=== PATIENT | female | born 1935 | race Caucasian/White ===

== ENCOUNTER 2019-04-05 15:18 | Inpatient (IN) | payer OTHER ==
[2019-04-05 16:08] LABS: Arterial Blood Carboxyhemoglob 0.8 % (0-1.5); Blood Gas Oxyhemoglobin 96.8 % (94-97); Blood O2 Saturation 98.5 % (92-98.5)
[2019-04-05 16:11] LABS: Absolute Lymphocytes (CBC) 0.7 K/uL (0.7-4.9); Absolute Monocytes 1.2 K/uL (0.1-1.3); Absolute Neutrophil 10.9 K/uL (1.8-8.0); Basophils % 0.2 % (0-1.3); Hematocrit 47.3 % (36.0-45.0); Lymphocytes % 5.6 % (15.3-44.8); MPV 10.2 fL (7.6-11.3); Monocytes % 9.6 % (3.3-12.3); RBC Red Blood Cell Count 5.25 M/uL (3.86-4.86)
[2019-04-05 16:12] LABS: Protime INR 1.39
[2019-04-05] MEDS ORDERED: NA CHLORIDE 0.9% 1,000 ML ONE (16:34)
[2019-04-05] MEDS ORDERED: LEVALBUTEROL 1.25 MG/3 ML NEB ONE (16:34)
[2019-04-05] MEDS ORDERED: IPRATROPIUM BROM 0.5MG/2.5ML ONE (16:34)
[2019-04-05 16:43] LABS: Albumin 3.2 g/dL (3.4-5.0); Bilirubin Direct 0.4 mg/dL (0-0.2); Bilirubin Total 1.5 mg/dL (0.2-1.0); Magnesium 2.7 mg/dL (1.8-2.4); Potassium 4.5 mmol/L (3.5-5.1); Protein, Total 7.4 g/dL (6.4-8.2); Troponin (Emerg Dept Use Only) 0.24 ng/mL (0.0-0.045)
--- NOTE | 2019-04-05 16:50 | RAD REPORT ---
EXAM DESCRIPTION: RAD - Chest Single View - 04/05/2019 4:16 pm CLINICAL HISTORY: Cough, congestion, shortness of breath COMPARISON: April 12, 2013 TECHNIQUE: AP portable chest image was obtained 1611 hours . FINDINGS: There is near complete opacification of the left hemithorax new from the prior study. Ther e is some minimal aeration in the upper left lung field. This is most likely a large left pleural eff usion. Patient likely has complete left lower lobe atelectasis and partial left upper lobe atelectasi s. Interstitial markings are prominent in the right lung field. No dense consolidation. Trachea remai ns midline. Heart size is difficult to assess, obscured by the left hemithorax findings. No pneumotho rax. No large right pleural effusion. No acute bony abnormality seen. No acute aortic findings suspec mian. IMPRESSION: Near complete left hemithorax opacification likely from large left pleural effusion.
--- NOTE | 2019-04-05 17:11 | RAD REPORT ---
EXAM DESCRIPTION: CT - Head Brain Wo Cont - 04/05/2019 4:58 pm CLINICAL HISTORY: Transient alteration of awareness COMPARISON: CT study October 2015 TECHNIQUE: Axial 5 mm thick images of the head were obtained without IV contrast. All CT scans are performed using dose optimization technique as appropriate and may include automated exposure control or mA/KV adjustment according to patient size. FINDINGS: No intracranial hemorrhage, mass, edema or shift of mid-line structures. No acute infarcti on changes seen. No cortical edema or sulcal effacement. Patient has advanced atrophy and chronic isc hemic change minimally progressive from 2015. Arterial and physiologic calcifications are present. Ve ntricles are normal. Mastoid air cells and visualized portions of the paranasal sinuses are clear. Right nasal passage po lyp or prominent mucosa unchanged from 2015. Degenerative bony changes are present. There is a new 2 centimeter area of lucency in the left pariet al bone that extends from outer table to inner table. As a new finding, myeloma or a bony metastatic lesion cannot be excluded. IMPRESSION: No acute infarction changes are present. No hemorrhage, mass or acute brain parenchymal finding. Advanced atrophy and chronic ischemic changes are present progressive from 2015. New lucent or lytic area in the left parietal bone could be metastatic disease or myeloma. No other f ocal bone lesions seen. As clinical findings warrant given the patient's baseline medical status, bone scan imaging could be performed to assess for activity in this region and to evaluate for any other bone lesions. ,
--- NOTE | 2019-04-05 17:15 | RAD REPORT ---
EXAM DESCRIPTION: CT - Thorax Wo Con - 04/05/2019 4:58 pm CLINICAL HISTORY: Shortness of breath, chest pain COMPARISON: Chest films same date TECHNIQUE: Axial 5 mm thick images of the chest were obtained without IV contrast. All CT scans are performed using dose optimization technique as appropriate and may include automated exposure control or mA/KV adjustment according to patient size. FINDINGS: There is a large left pleural effusion present. There is complete left lower lobe atelecta sis. There is partial atelectasis of the left upper lobe with only a small amount of aerated parenchy ma in the left apex. There is left lower lobe bronchus complete opacification and partial opacificati on of the left upper lobe bronchus. No large perihilar mass lesions seen. Moderate right pleural effusion is present with partial right lower lobe atelectasis. No right-side e ndobronchial lesion identified. There is no infiltrate or mass of the right-sided lung parenchyma. No pneumothorax. No pleural based mass. No abnormal mediastinal or hilar masses or lymphadenopathy seen. No gross aortic or pulmonary artery finding suspected. Assessment is limited in the absence of IV contrast. Dense bowel than coronary ar leonel calcifications are present. Cardiomegaly is present without pericardial effusion. No chest wall mass or abnormal axillary lymphadenopathy. Patient has fluid retention in the subcutane ous fatty tissues of the chest, upper abdomen and left upper extremity. Osteopenic changes are evident. There are multiple areas of diminished attenuation within the thoraci c vertebrae. The lytic or lucent focus in the posterior left ninth rib is present. IMPRESSION: Large left pleural effusion with complete left lower lobe atelectasis and partial atelec tasis of the left upper lobe. There is mucous plugging or other obstructive process in the left lower lobe and left upper lobe bronchi. Moderate right pleural effusion with partial atelectasis of the right lower lobe. Cardiomegaly with fluid retention throughout the chest, upper abdomen and left upper extremity subcut aneous tissues. Multiple lytic vertebral lesions and at least 1 rib lesion. This finding along with the lucent focus in the skull suggest myeloma or bony metastatic disease.
[2019-04-05] MEDS ORDERED: PIPER/TAZO/NS 3.375gm 3.375 GM/100 ML BAG ONE (17:38)
--- NOTE | 2019-04-05 18:05 | EDPHYS ---
Physician Documentation [facility] Name: Catrachita Husain Age: 83 yrs Sex: Female : 1935 Arrival Date: 04/05/2019 Time: 15:26 Bed 2 Private MD: ED Physician Vikash Aceves HPI: 04/05 15:50 This 83 yrs old Female presents to ER via EMS with complaints of ams and yumiko dyspnea. 15:50 This 83 yrs old Female presents to ER via EMS with complaints of ams and yumiko dyspnea. 15:50 The patient has shortness of breath at rest. Onset: The symptoms/episode began/occurred yumiko 1 day(s) ago. Duration: The symptoms are continuous, and are steadily getting worse. The patient's shortness of breath is aggravated by nothing, is alleviated by elevating head, application of supplemental oxygen. The patient presents with confusion, decreased mental status, trouble concentrating. Possible causes: sepsis, unknown. Associated signs and symptoms: The patient has no apparent associated signs or symptoms. Historical: - Allergies: 15:37 No Known Allergies; ph - Home Meds: 17:24 Unable to obtain [Active]; sg - PMHx: 17:24 Cancer, Breast; sg - PSHx: 15:37 Cholecystectomy; ph 17:24 Mastectomy; sg - Immunization history:: Adult Immunizations not up to date. - Family history:: not pertinent. - Social history:: Smoking status: unknown. - Ebola Screening: : Patient negative for fever greater than or equal to 101.5 degrees Fahrenheit, and additional compatible Ebola Virus Disease symptoms Patient denies exposure to infectious person Patient denies travel to an Ebola-affected area in the 21 days before illness onset No symptoms or risks identified at this time. ROS: 15:50 Eyes: Negative for injury, pain, redness, and discharge, ENT: Negative for injury, yumiko pain, and discharge, Abdomen/GI: Negative for abdominal pain, nausea, vomiting, diarrhea, and constipation, Back: Negative for injury and pain, : Negative for injury, bleeding, discharge, and swelling, Skin: Negative for injury, rash, and discoloration, Psych: Negative for depression, anxiety, suicide ideation, homicidal ideation, and hallucinations, Allergy/Immunology: Negative for hives, rash, and allergies, Endocrine: Negative for neck swelling, polydipsia, polyuria, polyphagia, and marked weight changes. 15:50 Neck: Positive for stiffness, chronic, down and to left. 15:50 Cardiovascular: Positive for palpitations. 15:50 Respiratory: Positive for cough, shortness of breath, at rest. 15:50 Unable to obtain ROS due to altered mental status. Exam: 15:50 Eyes: Pupils equal round and reactive to light, extra-ocular motions intact. Lids and yumiko lashes normal. Conjunctiva and sclera are non-icteric and not injected. Cornea within normal limits. Periorbital areas with no swelling, redness, or edema. Chest/axilla: Normal chest wall appearance and motion. Nontender with no deformity. No lesions are appreciated. 15:50 Head/face: Noted is rash, of the chin, right mandible and left mandible. 15:50 Neck: External neck: rotated, kyphosis, to left. 15:50 Cardiovascular: Rate: tachycardic, Rhythm: regular, Pulses: Pulses are 4+ in bilateral radial, brachial, femoral, popliteal, posterior tibial and and dorsalis pedis arteries.. Edema: is not appreciated, JVD: is not appreciated, left arm lymphedema. Vital Signs: 15:34 BP 184 / 85; Pulse 111; Resp 28; Pulse Ox 82% on R/A; Weight 43.09 kg; ph 15:35 Pulse 108; Resp 29 S; Pulse Ox 97% on 100% Non-rebreather mask; sg 15:56 BP 167 / 74; Pulse 110; Resp 28; Temp 97.4; Pulse Ox 99% on Non-rebreather mask; ph 17:22 BP 155 / 70; Pulse 100 MON; Resp 28; Pulse Ox 100% on 100% Nebulizer Mask; sg 18:20 BP 154 / 70; Pulse 100; Resp 22; Pulse Ox 97% on 35% BiPAP; sg 19:00 BP 142 / 77; Pulse 98; Resp 21 S; Pulse Ox 97% on 35% BiPAP; sg 19:42 BP 144 / 58; Pulse 97; Resp 22; Temp 97.2; Pulse Ox 97% on BiPAP; Pain 0/10; aa1 Procedures: 17:50 Peripheral line: by aseptic technique a peripheral line was placed in the right [facility] external jugular vein. [facility]: 15:27 Patient medically screened. [facility] 15:57 Data reviewed: vital signs, nurses notes, lab test result(s), EKG, radiologic studies, [facility] CT scan, plain films. 04/05 15:48 Order name: Basic Metabolic Panel [facility] 04/05 15:48 Order name: CBC with Diff [facility] 04/05 15:48 Order name: LFT's [facility] 04/05 15:48 Order name: Magnesium [facility] 04/05 15:48 Order name: NT PRO-BNP [facility] 04/05 15:48 Order name: PT-INR [facility] 04/05 15:48 Order name: Troponin (emerg Dept Use Only) [facility] 04/05 15:48 Order name: Lipase [facility] 04/05 15:48 Order name: Blood Culture Adult (2) [facility] 04/05 15:48 Order name: Procalcitonin; Complete Time: 16:42 [facility] 04/05 15:48 Order name: Lactate; Complete Time: 17:23 [facility] 04/05 15:48 Order name: Urine Culture [facility] 04/05 15:48 Order name: ABG; Complete Time: 16:42 [facility] 04/05 15:48 Order name: Basic Metabolic Panel; Complete Time: 17:23 [facility] 04/05 15:48 Order name: XRAY Chest (1 view); Complete Time: 17:23 [facility] 04/05 15:48 Order name: CT Head Brain wo Cont; Complete Time: 17:23 [facility] 04/05 15:48 Order name: Glucose, Ancillary Testing [facility] 04/05 15:48 Order name: CBC with Automated Diff; Complete Time: 16:25 [facility] 04/05 15:48 Order name: Liver (Hepatic) Function; Complete Time: 17:23 [facility] 04/05 15:49 Order name: Magnesium; Complete Time: 17:23 [facility] 04/05 15:49 Order name: NT PRO-BNP; Complete Time: 17:23 [facility] 04/05 15:49 Order name: Protime (+INR); Complete Time: 16:25 [facility] 04/05 15:49 Order name: Troponin (Emerg Dept Use Only); Complete Time: 17:23 [facility] 04/05 15:49 Order name: Lipase; Complete Time: 17:23 [facility] 04/05 16:25 Order name: CT Chest Wo Con; Complete Time: 17:23 [facility] 04/05 17:52 Order name: BIPAP: low pressures [facility] 04/05 18:05 Order name: Urine Dipstick--Ancillary (enter results) em1 04/05 15:48 Order name: EKG; Complete Time: 15:49 [facility] 04/05 15:48 Order name: Cardiac monitoring; Complete Time: 17:00 [facility] 04/05 15:48 Order name: EKG - Nurse/Tech; Complete Time: 17:00 [facility] 04/05 15:48 Order name: IV Saline Lock; Complete Time: 17:00 [facility] 04/05 15:48 Order name: Labs collected and sent; Complete Time: 17:00 [facility] 04/05 15:48 Order name: O2 Per Protocol; Complete Time: 17:00 [facility] 04/05 15:48 Order name: O2 Sat Monitoring; Complete Time: 17:01 [facility] 04/05 15:48 Order name: Flynn; Complete Time: 17:22 [facility] 04/05 15:48 Order name: Urine Dipstick-Ancillary (obtain specimen); Complete Time: 18:01 [facility] Administered Medications: 16:55 Drug: Xopenex 3.75 mg Route: Inhalation; sg 16:55 Drug: AtroVENT Aerosol 0.5 mg Route: Inhalation; sg 16:55 Drug: NS 0.9% 1000 ml Route: IV; Rate: 100 ml/hr; Site: right antecubital; sg 20:00 Follow up: IV Status: Infusion continued upon admission aa1 17:59 Drug: Zosyn 3.375 grams Route: IVPB; Infused Over: 60 mins; Site: right jugular; sg 19:00 Follow up: IV Status: Completed infusion; IV Intake: 100ml aa 18:32 Drug: LevaQUIN 500 mg Volume: 100 ml; Route: IVPB; Infused Over: 60 mins; Site: right sg antecubital; 19:32 Follow up: IV Status: Completed infusion; IV Intake: 100ml aa1 Disposition: 04/05/19 18:04 Hospitalization ordered by Arnav Cordova for Inpatient Admission. Preliminary diagnosis are Altered mental status, unspecified, Hypoxemia, Pleural effusion in conditions classified elsewhere - bilateral, Unspecified kidney failure, Weakness. - Bed requested for Telemetry/MedSurg (Inpatient). - Status is Inpatient Admission. aa1 - Condition is Serious. - Problem is new. - Symptoms have improved. UTI on Admission? No Signatures: Dispatcher [employer] EDАлександр Edwards RN RN Genoveva Nelson RN RN aa1 Vikash Aceves MD MD cha Hall, Patricia, RN RN Roberta Vergara RN RN df Corrections: (The following items were deleted from the chart) 18:31 18:04 Hospitalization Ordered by Arnav Cordova DO for Inpatient Admission. Preliminary df diagnosis is Altered mental status, unspecified; Hypoxemia; Pleural effusion in conditions classified elsewhere - bilateral; Unspecified kidney failure; Weakness. Bed requested for Telemetry/MedSurg (Inpatient). Status is Inpatient Admission. Condition is Serious. Problem is new. Symptoms have improved. UTI on Admission? No. yumiko 20:05 18:31 04/05/2019 18:04 Hospitalization Ordered by ArnavWillie SARABIA for Inpatient aa1 Admission. Preliminary diagnosis is Altered mental status, unspecified; Hypoxemia; Pleural effusion in conditions classified elsewhere - bilateral; Unspecified kidney failure; Weakness. Bed requested for Telemetry/MedSurg (Inpatient). Status is Inpatient Admission. Condition is Serious. Problem is new. Symptoms have improved. UTI on Admission? No. df 20:33 20:05 04/05/2019 18:04 Hospitalization Ordered by Arnav Cordova DO for Inpatient aa1 Admission. Preliminary diagnosis is Altered mental status, unspecified; Hypoxemia; Pleural effusion in conditions classified elsewhere - bilateral; Unspecified kidney failure; Weakness. Bed requested for Telemetry/MedSurg (Inpatient). Status is Inpatient Admission. Condition is Serious. Problem is new. Symptoms have improved. UTI on Admission? No. aa1
--- NOTE | 2019-04-05 18:05 | ER ---
Nurse's Notes [facility] Name: Catrachita Husain Age: 83 yrs Sex: Female : 1935 Arrival Date: 04/05/2019 Time: 15:26 Bed 2 Private MD: Diagnosis: Altered mental status, unspecified;Hypoxemia;Pleural effusion in conditions classified elsewhere-bilateral;Unspecified kidney failure;Weakness Presentation: 04/05 15:30 Presenting complaint: EMS states: Family called for difficulty breathing, reports that ph yesterday afternoon pt became altered and quit talking, also started having trouble breathing, son states that pt is usually A\T\O x 3, Spo2 78% RA, BP elevated 200s/110s, HR 113, BGL 122. Transition of care: patient was not received from another setting of care. Onset of symptoms was April 05, 2019. Risk Assessment: Do you want to hurt yourself or someone else? Patient reports no desire to harm self or others. Initial Sepsis Screen: Does the patient meet any 2 criteria? RR > 20 per min. Altered Mental Status. HR > 90 bpm. Yes Does the patient have a suspected source of infection? No. Patient's initial sepsis screen is negative. Care prior to arrival: None. 15:30 Method Of Arrival: EMS: [facility] ph 15:30 Acuity: JOSSELYN 1 ph Historical: - Allergies: 15:37 No Known Allergies; ph - Home Meds: 17:24 Unable to obtain [Active]; sg - PMHx: 17:24 Cancer, Breast; sg - PSHx: 15:37 Cholecystectomy; ph 17:24 Mastectomy; sg - Immunization history:: Adult Immunizations not up to date. - Family history:: not pertinent. - Social history:: Smoking status: unknown. - Ebola Screening: : Patient negative for fever greater than or equal to 101.5 degrees Fahrenheit, and additional compatible Ebola Virus Disease symptoms Patient denies exposure to infectious person Patient denies travel to an Ebola-affected area in the 21 days before illness onset No symptoms or risks identified at this time. Screenin:39 Abuse screen: Denies threats or abuse. Denies injuries from another. Nutritional sg screening: No deficits noted. Tuberculosis screening: No symptoms or risk factors identified. Never had TB. Fall Risk None identified. Assessment: 15:39 Reassessment: pt son at bedside at this time. sg 15:42 Pain: Unable to use pain scale. Neuro: Level of Consciousness is awake, does not follow sg commands, will not answer questions, pt son reports that she is normally able to complete her adls and can speak, noticed last night that she was not breathing normally and not able to follow commands. Cardiovascular: Heart tones S1 S2 present Patient's skin is warm and dry. Rhythm is. Respiratory: Respiratory effort is even, labored, with retractions, shallow, Respiratory pattern is tachypnea Breath sounds with crackles Breath sounds are diminished in right posterior upper lobe, left posterior lower lobe, right posterior middle lobe and right posterior lower lobe. GI: Abdomen is flat, non-distended. EENT: Oral mucosa is dry. Derm: Skin is fragile, is thin, Skin is dry, Skin is pale, Skin temperature is warm. Derm: skin break down noted on pt chest where her chin lays upon her chest due to kyphotic posture, a reddened area that is blanchable noted to her neck and left shoulder, a reddened blanchable area noted on her right scapula and buttocks, pt repositioned to left side lying. Musculoskeletal: Swelling present in left arm. 16:15 Reassessment: Patient appears in no apparent distress at this time. RUCHI Kelly sg at bedside at this time for ABG and for Suctioning of the upper airways, Inserted nasal trumpet to Right nare by AUDIO VISUAL DIRECTOR, snoring respirations decreased, pt appears relaxed at this time. 17:21 Reassessment: Patient appears in no apparent distress at this time. Patient states sg symptoms have not improved. General: Appears in no apparent distress. Neuro: Level of Consciousness is awake, does not follow commands, will not answer questions, pt eyes awake with resp even and labored, tachypneic at this time, Nasal trumpet remains intact in the right nare. 17:37 Reassessment: Patient appears in no apparent distress at this time. at sg bedside at bedside updating pt son on POC and need for admission, discussing treatment options at this time. 18:18 Reassessment: Patient appears in no apparent distress at this time. Yamile AUDIO VISUAL DIRECTOR sg at bedside for application of BiPap, pt tolerating well at this time. Respiratory: Respiratory effort is even, Respiratory pattern is tachypnea. Derm: Skin is pink, warm \T\ dry. Skin temperature is warm. 18:47 Reassessment: Rd castaneda son can be reached at [phone]. sg 18:50 Reassessment: attempt to call report, floor nurse unavailable at this time. sg 19:15 Reassessment: Patient appears in no apparent distress at this time. No changes from aa1 previously documented assessment. Patient and/or family updated on plan of care and expected duration. Pain level reassessed. Patient is alert, oriented x 3, equal unlabored respirations, skin warm/dry/pink. Patient is alert/active/playful, equal unlabored respirations, skin warm/dry/pink. Patient states symptoms have improved. Critical care time stopped, patient has stabilized. Pt resting quietly, eyes closed. Awaiting admission to room 201. 20:02 Reassessment: Patient appears in no apparent distress at this time. No changes from aa1 previously documented assessment. Report given to Mindy Fu LVN. Vital Signs: 15:34 BP 184 / 85; Pulse 111; Resp 28; Pulse Ox 82% on R/A; Weight 43.09 kg; ph 15:35 Pulse 108; Resp 29 S; Pulse Ox 97% on 100% Non-rebreather mask; sg 15:56 BP 167 / 74; Pulse 110; Resp 28; Temp 97.4; Pulse Ox 99% on Non-rebreather mask; ph 17:22 BP 155 / 70; Pulse 100 MON; Resp 28; Pulse Ox 100% on 100% Nebulizer Mask; sg 18:20 BP 154 / 70; Pulse 100; Resp 22; Pulse Ox 97% on 35% BiPAP; sg 19:00 BP 142 / 77; Pulse 98; Resp 21 S; Pulse Ox 97% on 35% BiPAP; sg 19:42 BP 144 / 58; Pulse 97; Resp 22; Temp 97.2; Pulse Ox 97% on BiPAP; Pain 0/10; aa1 ED Course: 15:26 Patient arrived in ED. em1 15:27 Vikash Aceves MD is Attending Physician. yumiko 15:34 Triage completed. ph 15:37 Arm band placed on. ph 15:38 Initial lab(s) drawn, by me, sent to lab. Inserted saline lock: 22 gauge in right sg forearm, using aseptic technique. Blood collected. 15:40 Patient has correct armband on for positive identification. Bed in low position. Call sg light in reach. Side rails up X2. nuclear monitoring technician on. Pulse ox on. NIBP on. Warm blanket given. Head of bed elevated. 16:16 XRAY Chest (1 view) In Process Unspecified. EDMS 16:58 CT Head Brain wo Cont In Process Unspecified. EDMS 16:59 CT Chest Wo Con In Process Unspecified. EDMS 17:20 Aditi Espinoza, RN is Primary Nurse. 17:21 Primary Nurse role handed off by Aditi Espinoza, RN 17:21 Александр Lyn, ANGELITO is Primary Nurse. 17:21 Flynn cath inserted, using sterile technique, 12 Fr., by al, balloon inflated, clamped. ae3 urine specimen collected. other Scanty amount of moose urine in Flynn tubing, insufficient amount of urine for specimen collection at this time. 17:39 First set of blood cultures drawn by al, by venipuncture 23G to right hand. dh3 17:50 IV insertion, 18 G R Jugular by , 1 attempt, pt tolerated well, blood sg culture obtained, IV abx to infuse. 17:54 Second set of blood cultures drawn by physician. dh3 18:01 Arnav Cordova DO is Hospitalizing Provider. [facility] 18:03 Urine collected: Flynn catheter specimen, clear, Amount Returned: 20mL. dh3 18:49 Patient admitted, IV remains in place. intact, No redness/swelling at site. sg Administered Medications: 16:55 Drug: Xopenex 3.75 mg Route: Inhalation; 16:55 Drug: AtroVENT Aerosol 0.5 mg Route: Inhalation; sg 16:55 Drug: NS 0.9% 1000 ml Route: IV; Rate: 100 ml/hr; Site: right antecubital; sg 20:00 Follow up: IV Status: Infusion continued upon admission aa1 17:59 Drug: Zosyn 3.375 grams Route: IVPB; Infused Over: 60 mins; Site: right jugular; sg 19:00 Follow up: IV Status: Completed infusion; IV Intake: 100ml aa1 18:32 Drug: LevaQUIN 500 mg Volume: 100 ml; Route: IVPB; Infused Over: 60 mins; Site: right sg antecubital; 19:32 Follow up: IV Status: Completed infusion; IV Intake: 100ml aa1 Intake: 19:00 IV: 100ml; Total: 100ml. aa1 19:32 IV: 100ml; Total: 200ml. aa1 Outcome: 18:04 Decision to Hospitalize by Provider. yumiko 20:33 Admitted to Med/surg accompanied by tech, via stretcher, room 201, with oxygen, with aa1 chart, Report called to Mindy Fu LVN 20:33 Patient left the ED. aa1 Signatures: Dispatcher [employer] EDАлександр Edwards, RN RN sg Genoveva Nelson RN RN aa1 Vikash Aceves MD MD cha Martinez, Ephraim em1 Aditi Espinoza RN RN Breann Narayan RN RN Dennis, Jeana 3 Suzie Fields ae3 Corrections: (The following items were deleted from the chart) 17:39 17:38 NS 0.9% 1000 ml IV at 100 ml/hr in right antecubital [facility]
--- NOTE | 2019-04-05 18:38 | P.HP ---
Certification for Inpatient Patient admitted to: Inpatient With expected LOS: >2 Midnights Patient will require the following post-hospital care: Hospice Practitioner: I am a practitioner with admitting privileges, knowledge of patient current condition, hospital course, and medical plan of care. Services: Services provided to patient in accordance with Admission requirements found in Title 42 Section 412.3 of the Code of Federal Regulations Patient History Date of Service: 04/05/19 Primary Care Provider: None Reason for admission: Shortness of breath History of Present Illness: 83-year-old female brought in by son due to increasing shortness of breath and poor oral intake. Most of the information came from the son in the ER physician. Patient with history of stage IV breast cancer, hypertension, hyperlipidemia, atrial fibrillation, history CVA and poor follow up. Son reports that the patient has not followed up with any PCP or specialist in quite some time. The son reports that the patient refuses to go to any physician. Last hospitalization in 2012 was noted. Son further reports of the patient has history of breast cancer stage IV. She got chemotherapy many years ago. He further reports that in health for quite some time. She has been getting more short of breath. Yesterday she became more short of breath and quit eating. Today she refused to eat and the shortness of breath worsened. He brought the patient for further evaluation. Patient in see beer distress. Patient was immediately placed on BiPAP. Initial lab shows sodium 140, potassium 4.5, BUN of 80, creatinine 1.41 with a GFR 36. Glucose 120. White count 12. Hemoglobin 15. Lactic acid within normal range. Troponin 0.24 BMP elevated. Chest x-rayed showed bilateral pleural effusions. CT head showed no acute changes but chronic ischemic changes were noted along with left parietal bone lesion likely metastatic in nature. CT scan revealed large left pleural effusion with complete lower lobe atelectasis and partial atelectasis of the left upper lobe. There was mucus plugging with the possibility of obstructive process in the left lower lobe and left upper bronchi. Moderate right pleural effusion with partial atelectasis of the right lobe was also noted. Cardiomegaly with fluid retention throughout the chest, upper abdomen and left upper extremity of the subcutaneous tissues were noted. Multiple lytic vertebrae lesions likely metastatic. Patient was stabilized in the emergency room. Patient was admitted for further evaluation. When I saw the patient ER, she appeared cachectic, disheveled and ill appearing. Allergies No Known Allergies Allergy (Verified 04/08/13 08:12) Home medications list reviewed: No Home Medications: Amlodipine [Norvasc*] 5 mg PO DAILY #30 tab 04/14/13 Ciprofloxacin HCl [Cipro*] 500 mg PO BID #14 tab 04/14/13 Hydrocodone 5/APAP 325 [[place] 5/325] 1 tab PO Q6H PRN #20 tab 04/14/13 - Past Medical/Surgical History -: Hypertension -: Hyperlipidemia -: History CVA -: History of atrial fibrillation -: Stage IV breast cancer -: GERD -: Poor follow up and compliance -: Breast mastectomy Psychosocial/ Personal History: Patient lives with son - Family History Family History: Reviewed- Non-Contributory - Social History Smoking Status: Unknown if ever smoked Alcohol use: Yes CD- Drugs: No Caffeine use: No Place of Residence: Home Review of Systems is unable to be obtained Physical Examination - Physical Exam General: Cachectic, Disheveled, Other (Patient currently on BiPAP. Patient with poor response to palpation. Muscle wasting throughout the body noted. Patient is severely malnourished ) HEENT: Atraumatic, Other (Dry mucous membranes) Neck: Other (Neck is relaxed) Respiratory: Crackles/rales, Other (Poor air movement bilateral.) Cardiovascular: Abnormal pulses (Suspect sinus tachycardia verses atrial fibrillation) Gastrointestinal: Normal bowel sounds, Other (Patient is severely malnourished.) Musculoskeletal: Other (Muscle wasting throughout) Neurological: Other (Patient with poor response to pain) - Studies Laboratory Data (last 24 hrs) 04/05/19 15:40: PT 16.2 H, INR 1.39 04/05/19 15:40: WBC 12.8 H, Hgb 15.2 H, Hct 47.3 H, Plt Count 345 04/05/19 15:40: Sodium 148 H, Potassium 4.5, BUN 80 H, Creatinine 1.41 H, Glucose 120 H, Magnesium 2.7 H, Total Bilirubin 1.5 H, AST 39 H, ALT 37, Alkaline Phosphatase 129 H, Lipase 70 L Assessment and Plan - Plan Impression: Acute respiratory failure secondary to large left pleural effusion with complete lower lobe atelectasis; partial atelectasis of the upper lobe with noted mucous plugging with the possibility of obstructive process; moderate right pleural effusion with partial atelectasis of the right lobe; cardiomegaly likely with underlying acute on chronic end-stage diastolic CHF and fluid retention throughout the chest, upper abdomen and left upper extremity of the subcutaneous tissues likely metastatic in nature 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 Patient with multiple medical issues with very poor outcome. Patient at risk for complications if patient required thoracentesis or intubation. Case discussed at length with the son who understands the patient's current condition. Son understands that her condition has declined over time. He mentions that the patient would not want any aggressive treatment. Advanced directives addressed in detail. Son wishes for the patient to be do not resuscitate and [id number]. Son desires comfort measures only. Son agrees with current plan of care and to discuss further about set up for hospice. Patient will likely require inpatient hospice. Will consult social services assistant in the morning to arrange. No need for aggressive workup at this time. Son agrees with plan of care. Will provide BiPAP, IV antibiotic therapy at this time. Will keep the patient as comfortable as possible. Will discuss with social services assistant along with son again tomorrow. Discharge Plan: Other (Inpatient hospice) Plan to discharge in: 24 Hours - Advance Directives Does patient have a Living Will: No Does patient have a Durable POA for Healthcare: No - Code Status/Comfort Care Code Status Assessed: Yes (Patient is DNR/DNI) Time Spent Managing Pts Care (In Minutes): 55
[2019-04-05] MEDS ORDERED: Levofloxacin500mg IV 500 MG/100 ML BAG IV ONE (18:41)
[2019-04-05 19:14] LABS: Urine Blood 2+ (NEG); Urine Glucose NEGATIVE (NEG); Urine Protein 2+ (NEG); Urine Specific Gravity >1.030 (1.005-1.030)
[2019-04-05] MEDS ORDERED: ONDANSETRON 4 MG/2 ML VIAL IV PRN (20:27)
[2019-04-05] MEDS ORDERED: ALBUTEROL 2.5 MG/3 ML NEB SOL NEB PRN (20:27)
[2019-04-05] MEDS ORDERED: HYDRALAZINE HCL 20 MG/ML VIAL IV PRN (20:27)
[2019-04-05] MEDS ORDERED: ACETAMINOPHEN 500 MG TAB PO PRN (20:27)
[2019-04-05] MEDS ORDERED: ACETAMINOPHEN 650MG/RECT SUPP RECT PRN (20:27)
[2019-04-05] MEDS: ARFORMOTEROL TARTRATE 15 MCG/2 ML VIAL.NEB NEB SCH (20:27)
[2019-04-05] MEDS ORDERED: IPRATROPIUM BROM 0.5MG/2.5ML NEB PRN (20:27)
[2019-04-05 22:22] VITALS: BMI 17.9
[2019-04-05 22:55] LABS: Urine Appearance CLEAR; Urine Bilirubin NEGATIVE (NEG); Urine Blood 2+ (NEG); Urine Color YELLOW; Urine Glucose NEGATIVE (NEG); Urine Protein 1+ (NEG); Urine Specific Gravity 1.025 (1.005-1.030)
[2019-04-05 22:58] LABS: Urine Microscopic Reflex ORDER UMIC
[2019-04-05] MEDS: FAMOTIDINE 20 MG/2 ML VIAL IV SCH (23:13)
[2019-04-05 23:27] LABS: Calcium Oxalate Crystals- Ur FEW (NONE SEEN); Urine Amorphous Sediment 2+ /HPF (NONE SEEN); Urine Bacteria <20 /HPF (<20); Urine Culture Reflex Order REFLEXED
[2019-04-06] MEDS: METHYLPREDNISOLONE 40 MG INJ IV SCH ×2 (00:05→11:02)
[2019-04-06] MEDS ORDERED: MORPHINE 2 MG/ML SYR IV ONE (02:48)
[2019-04-06 03:24] VITALS: O2SAT 94
[2019-04-06] MEDS ORDERED: MORPHINE 2 MG/ML SYR IV PRN (04:44)
[2019-04-06 06:22] LABS: Absolute Lymphocytes (CBC) 0.2 K/uL (0.7-4.9); Absolute Monocytes 1.3 K/uL (0.1-1.3); Absolute Neutrophil 13.5 K/uL (1.8-8.0); Basophils % 0.2 % (0-1.3); Hematocrit 42.5 % (36.0-45.0); Lymphocytes % 1.4 % (15.3-44.8); MPV 9.8 fL (7.6-11.3); Monocytes % 8.6 % (3.3-12.3); RBC Red Blood Cell Count 4.71 M/uL (3.86-4.86)
[2019-04-06 06:41] LABS: Magnesium 2.3 mg/dL (1.8-2.4); Potassium 3.4 mmol/L (3.5-5.1); Thyroid Stimulating Hormone 1.16 uIU/mL (0.360-3.740)
[2019-04-06] MEDS ORDERED: KCL 20 MEQ/100 mL IVPB 20 MEQ/100 ML BAG IV SCH (08:00)
[2019-04-06] MEDS: ARFORMOTEROL TARTRATE 15 MCG/2 ML VIAL.NEB NEB SCH (08:00)
[2019-04-06 08:07] LABS: Blood Morphology Comment NOT SEEN (NOT SEEN); Platelet Estimate ADEQ
--- NOTE | 2019-04-06 08:48 | EKG ---
Test Date: 2019-04-05 Test Time: 15:33:51 Media Professional: SWG MEASUREMENT RESULTS: Intervals: Rate: 114 NC: 124 QRSD: 118 QT: 336 QTc: 463 [place]: P: 40 NC: 124 QRS: 137 T: -33 INTERPRETIVE STATEMENTS: Sinus tachycardia Right axis deviation Left bundle branch block Abnormal ECG Compared to ECG 10/04/2015 17:37:35 Right axis deviation is now present Sinus rhythm no longer present Ventricular premature complex(es) no longer present Electronically Signed On 04-06-19 08:47:50 CDT by Rashad Zhou
[2019-04-06] MEDS ORDERED: ENOXAPARIN 30 MG/0.3 ML SQ SCH (09:00)
[2019-04-06] MEDS ORDERED: CEFEPIME 1 GM/VIAL IV SCH (09:00)
[2019-04-06] MEDS ORDERED: CEFEPIME/SWI 1gm 10 ML IV SCH (09:00)
[2019-04-06] MEDS: FAMOTIDINE 20 MG/2 ML VIAL IV SCH (10:59)
[2019-04-06 11:51] VITALS: BP 180/79; TEMP 98.2
[2019-04-06] MEDS ORDERED: NA CHLORIDE 0.9% 0 ML ONE (12:21)
--- NOTE | 2019-04-06 13:20 | P.PN ---
Subjective Date of Service: 04/06/19 Primary Care Provider: None Chief Complaint: Shortness of breath Subjective: Other (Patient on BiPAP.) Physical Examination - Vital Signs Temperature: 98.2 F Blood Pressure: 180/79 Pulse: 110 Respirations: 32 Pulse Ox (%): 95 - Physical Exam General: Other (Patient with poor response. Able to open eyes. Patient on BiPAP.) HEENT: Other (Neck is hyperflexed) Neck: Supple Respiratory: Diminished (Bilateral), Expiratory wheezes (Bilateral) Cardiovascular: Abnormal pulses (Sinus tachycardia) Gastrointestinal: Normal bowel sounds, Other (Muscle wasting to the abdomen) Integumentary: Other (Muscle wasting to the abdomen, torso and extremities.) Other Physical/Emotional Findings: Patient with severe malnutrition - Studies Laboratory Data (last 24 hrs) 04/05/19 15:40: PT 16.2 H, INR 1.39 04/05/19 15:40: WBC 12.8 H, Hgb 15.2 H, Hct 47.3 H, Plt Count 345 04/05/19 15:40: Sodium 148 H, Potassium 4.5, BUN 80 H, Creatinine 1.41 H, Glucose 120 H, Magnesium 2.7 H, Total Bilirubin 1.5 H, AST 39 H, ALT 37, Alkaline Phosphatase 129 H, Lipase 70 L Microbiology Data (last 24 hrs): 04/05/19 17:39 Blood - Blood Anaerobic Blood Culture - Final Medications List Reviewed: Yes Assessment & Plan Discharge Plan: Other (Inpatient hospice) Plan to discharge in: 24 Hours Physician Review Additional Text: Impression: Acute respiratory failure secondary to large left pleural effusion with complete lower lobe atelectasis; partial atelectasis of the upper lobe with noted mucous plugging with the possibility of obstructive process; moderate right pleural effusion with partial atelectasis of the right lobe; cardiomegaly likely with underlying acute on chronic end-stage diastolic CHF and fluid retention throughout the chest, upper abdomen and left upper extremity of the subcutaneous tissues likely metastatic in nature 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 Son agrees with inpatient hospice. Will have social service liaison arrange for this. Patient is to remain DNR and do not intubate. Son agrees with current plan of care of inpatient hospice and comfort measures only. Will discontinue IV fluids, supplementation, and antibiotics. Discontinue IV blood draws. Will continue with comfort measures only for pain, agitation. Further adjustment in medication can be done by inpatient hospice once this has been arranged. Continue with BiPAP at this time. Respiratory to address and follow. I will turn the service over to Dr. Root tomorrow. I will go over the plan of care with her. Anticipate transfer to inpatient hospice likely later today. Time Spent Managing Pts Care (In Minutes): 55
--- NOTE | 2019-04-06 16:19 | P.DS ---
Admission Date: 04/05/19 Discharge Date: 04/06/19 Primary Care Provider: None Disposition: HOSPICE-MEDICAL FACILITY Discharge Condition: SERIOUS Reason for Admission: Shortness of breath Consultations: none Procedures: CT head: FINDINGS: No intracranial hemorrhage, mass, edema or shift of mid-line structures. No acute infarction changes seen. No cortical edema or sulcal effacement. Patient has advanced atrophy and chronic ischemic change minimally progressive from 2015. Arterial and physiologic calcifications are present. Ventricles are normal. Mastoid air cells and visualized portions of the paranasal sinuses are clear. Right nasal passage polyp or prominent mucosa unchanged from 2015. Degenerative bony changes are present. There is a new 2 centimeter area of lucency in the left parietal bone that extends from outer table to inner table. As a new finding, myeloma or a bony metastatic lesion cannot be excluded. IMPRESSION: No acute infarction changes are present. No hemorrhage, mass or acute brain parenchymal finding. Advanced atrophy and chronic ischemic changes are present progressive from 2015. New lucent or lytic area in the left parietal bone could be metastatic disease or myeloma. No other focal bone lesions seen. As clinical findings warrant given the patient's baseline medical status, bone scan imaging could be performed to assess for activity in this region and to evaluate for any other bone lesions. CT chest: FINDINGS: There is a large left pleural effusion present. There is complete left lower lobe atelectasis. There is partial atelectasis of the left upper lobe with only a small amount of aerated parenchyma in the left apex. There is left lower lobe bronchus complete opacification and partial opacification of the left upper lobe bronchus. No large perihilar mass lesions seen. Moderate right pleural effusion is present with partial right lower lobe atelectasis. No right-side endobronchial lesion identified. There is no infiltrate or mass of the right-sided lung parenchyma. No pneumothorax. No pleural based mass. No abnormal mediastinal or hilar masses or lymphadenopathy seen. No gross aortic or pulmonary artery finding suspected. Assessment is limited in the absence of IV contrast. Dense bowel than coronary artery calcifications are present. Cardiomegaly is present without pericardial effusion. No chest wall mass or abnormal axillary lymphadenopathy. Patient has fluid retention in the subcutaneous fatty tissues of the chest, upper abdomen and left upper extremity. Osteopenic changes are evident. There are multiple areas of diminished attenuation within the thoracic vertebrae. The lytic or lucent focus in the posterior left ninth rib is present. IMPRESSION: Large left pleural effusion with complete left lower lobe atelectasis and partial atelectasis of the left upper lobe. There is mucous plugging or other obstructive process in the left lower lobe and left upper lobe bronchi. Moderate right pleural effusion with partial atelectasis of the right lower lobe. Cardiomegaly with fluid retention throughout the chest, upper abdomen and left upper extremity subcutaneous tissues. Multiple lytic vertebral lesions and at least 1 rib lesion. This finding along with the lucent focus in the skull suggest myeloma or bony metastatic disease. Medical Problem List: Acute respiratory failure secondary to large left pleural effusion with complete lower lobe atelectasis; partial atelectasis of the upper lobe with noted mucous plugging with the possibility of obstructive process; moderate right pleural effusion with partial atelectasis of the right lobe Cardiomegaly likely related to underlying acute on chronic end-stage diastolic CHF Fluid retention throughout the chest, upper abdomen and left upper extremity of the subcutaneous tissues likely metastatic in nature Stage IV breast cancer with metastasis to the parietal bone and vertebra Hypertension History of atrial fibrillation History of CVA Severe protein calorie malnutrition with muscle wasting Patient with history of poor medical follow up Brief History of Present Illness: 83-year-old female brought in by son due to increasing shortness of breath and poor oral intake. Most of the information came from the son and the ER physician. Patient with history of stage IV breast cancer, hypertension, hyperlipidemia, atrial fibrillation, history CVA and poor follow up. Son reports that the patient has not followed up with any PCP or specialist in quite some time. The son reports that the patient refuses to go to any physician concerning her health. Last hospitalization in 2012 was noted. Son further reports of the patient has history of breast cancer stage IV. She got chemotherapy many years ago and never followed up. He further reports that the patient has been in poor health for quite some time. Weight has decreased over time. She has been getting more short of breath. Yesterday she became more short of breath and quit eating. Today she refused to eat and the shortness of breath worsened. He brought the patient for further evaluation. Patient in see beer distress. Patient was immediately placed on BiPAP. Initial lab shows sodium 140, potassium 4.5, BUN of 80, creatinine 1.41 with a GFR 36. Glucose 120. White count 12. Hemoglobin 15. Lactic acid within normal range. Troponin 0.24 BMP elevated. Chest x-rayed showed bilateral pleural effusions. CT head showed no acute changes but chronic ischemic changes were noted along with left parietal bone lesion likely metastatic in nature. CT scan revealed large left pleural effusion with complete lower lobe atelectasis and partial atelectasis of the left upper lobe. There was mucus plugging with the possibility of obstructive process in the left lower lobe and left upper bronchi. Moderate right pleural effusion with partial atelectasis of the right lobe was also noted. Cardiomegaly with fluid retention throughout the chest, upper abdomen and left upper extremity of the subcutaneous tissues were noted. Multiple lytic vertebrae lesions likely metastatic. Patient was stabilized in the emergency room. Patient was admitted for further evaluation. Hospital Course: Patient presented with acute respiratory failure. This was multifactorial. Patient found to have large left pleural effusion with complete lower lobe atelectasis; partial atelectasis of the the upper lobe with noted mucus plugging with the possibility of obstructive process; and moderate right pleural effusion with partial atelectasis of the right lobe. This was further complicated with cardiomegaly likely with underlying acute on chronic end-stage diastolic CHF and fluid retention throughout the chest/upper abdomen/left upper extremity of the subcutaneous tissues likely metastatic in nature. Patient with history of stage IV breast cancer with metastasis to the bone, hypertension , atrial fibrillation, and history of CVA. Patient has been in poor health. Son had reported that the patient had been decreasing in weight with poor oral intake. Upon initial evaluation the patient was severely malnourished with muscle wasting noted throughout. Son reported that the patient never followed up with her PCP or specialty care for her chronic conditions. Son reports that the patient was the type of person that did not want to take medication or receive life saving measures. Upon further evaluation patient was in critical condition. Patient was initially started on antibiotic therapy. Electrolytes were supplemented. Patient was placed on BiPAP. Her condition continued to decline. Plan of care was discussed in detail with the son. Advanced directives were addressed as well. Son wishes for the patient to be DNR and do not intubate. Son reports that the patient had expressed that she would not want any life- saving measures done. Upon further plan of care, hospice was discussed along with comfort measure. Son agrees with inpatient hospice. At discharge patient will enter inpatient hospice to continue comfort measures. Further adjustment in medication can be done by inpatient hospice. Vital Signs/Physical Exam: Temp Pulse Resp BP Pulse Ox 98.2 F 110 H 32 H 180/79 H 95 04/06/19 13:20 04/06/19 13:20 04/06/19 13:20 04/06/19 13:20 04/06/19 13:20 General: Cachectic, Disheveled, Other (Patient on BiPAP. Patient is severely malnourished) HEENT: Other (Patient had eye contact. Poor response to pain) Neck: Other (Neck hyperflexed) Respiratory: Diminished (Bilateral), Expiratory wheezes (Bilateral) Cardiovascular: Abnormal pulses (Sinus tachycardia a) Gastrointestinal: Normal bowel sounds Neurological: Other (Patient severely malnourished. Muscle wasting noted throughout including scalp, torso and extremities.) Other Physical/Emotional Findings: Patient with severe malnutrition Laboratory Data at Discharge: WBC 15.0 K/uL (4.3-10.9) H D 04/06/19 05:45 Hgb 13.8 g/dL (12.0-15.0) 04/06/19 05:45 Hct 42.5 % (36.0-45.0) 04/06/19 05:45 Plt Count 301 K/uL (152-406) 04/06/19 05:45 PT 16.2 SECONDS (9.5-12.5) H 04/05/19 15:40 INR 1.39 04/05/19 15:40 Sodium 151 mmol/L (136-145) H 04/06/19 05:45 Potassium 3.4 mmol/L (3.5-5.1) L 04/06/19 05:45 BUN 83 mg/dL (7-18) H 04/06/19 05:45 Creatinine 1.11 mg/dL (0.55-1.3) 04/06/19 05:45 Glucose 109 mg/dL (74-106) H 04/06/19 05:45 Magnesium 2.3 mg/dL (1.8-2.4) 04/06/19 05:45 Total Bilirubin 1.5 mg/dL (0.2-1.0) H 04/05/19 15:40 AST 39 U/L (15-37) H 04/05/19 15:40 ALT 37 U/L (12-78) 04/05/19 15:40 Alkaline Phosphatase 129 U/L (45-117) H 04/05/19 15:40 Lipase 70 U/L (73-393) L 04/05/19 15:40 Home Medications: Amlodipine [Norvasc*] 5 mg PO DAILY #30 tab 04/14/13 Ciprofloxacin HCl [Cipro*] 500 mg PO BID #14 tab 04/14/13 Hydrocodone 5/APAP 325 [[place] 5/325] 1 tab PO Q6H PRN #20 tab 04/14/13 Patient Discharge Instructions: Patient will be discharged to inpatient hospice. Patient is do not intubate and do not resuscitate. Comfort measures to be continued. Further adjustment in medication can be done by inpatient hospice. Diet: Comfort feeding Activity: Bedrest Time spent managing pt's care (in minutes): 55
== END 2019-04-06 16:34 | disposition hospice, inpatient (51) | DRG 189 ==
LOC: ER 15:18 → ERHOLD 18:23 → 2ND 19:56
PROVIDERS: ADMIT Family Medicine; ATTEND Family Medicine
PROC: 5A09357 Assistance with Respiratory Ventilation, Less than 24 Consecutive Hours, Continuous Positive Airway Pressure (ICD-10-PCS; principal; 2019-04-05)
DX: J96.00 Acute respiratory failure, unspecified whether with hypoxia or hypercapnia (principal); I50.33 Acute on chronic diastolic (congestive) heart failure; E43 Unspecified severe protein-calorie malnutrition; J90 Pleural effusion, not elsewhere classified; J98.11 Atelectasis; T17.890A Other foreign object in other parts of respiratory tract causing asphyxiation, initial encounter; C79.51 Secondary malignant neoplasm of bone; Z68.1 Body mass index [BMI] 19.9 or less, adult; Z51.5 Encounter for palliative care; Z66 Do not resuscitate; I11.0 Hypertensive heart disease with heart failure; C50.919 Malignant neoplasm of unspecified site of unspecified female breast; I48.91 Unspecified atrial fibrillation; Z91.19 Patient's noncompliance with other medical treatment and regimen; E78.5 Hyperlipidemia, unspecified; K21.9 Gastro-esophageal reflux disease without esophagitis; Z86.73 Personal history of transient ischemic attack (TIA), and cerebral infarction without residual deficits; Z90.10 Acquired absence of unspecified breast and nipple
CPT/HCPCS: 36415; 51702; 70450; 71045; 71250; 80048; 80076; 81003; 81015; 82805; 82962; 83605; 83690; 83735; 83880; 84145; 84439; 84443; 84484; 85025; 85610; 87040; 87086; 87088; 87205; 93005; 94640; 94660; 96361; 96365; 96368; 99291; 99292; J0360; J0692; J1650; J2270; J2543; J2920; J7030; J7605

== ENCOUNTER 2019-04-06 16:37 | Inpatient (IN) | payer OTHER ==
[2019-04-06] MEDS ORDERED: ACETAMINOPHEN 650MG/RECT SUPP PR PRN (16:54)
[2019-04-06] MEDS ORDERED: ONDANSETRON 4 MG/2 ML VIAL IV PRN (16:55)
[2019-04-06] MEDS ORDERED: SCOPOLAMINE HYDROBROMIDE PATCH TD PRN (16:55)
[2019-04-06] MEDS: MORPHINE 2 MG/ML SYR IV PRN (20:50)
[2019-04-06] MEDS: LORazepam 2 MG/ML VIAL IV PRN (20:51)
[2019-04-07] MEDS: LORazepam 2 MG/ML VIAL IV PRN (02:21)
[2019-04-07] MEDS: MORPHINE 2 MG/ML SYR IV PRN ×3 (02:21→17:51)
[2019-04-07 06:36] VITALS: O2SAT 97
[2019-04-07 21:23] VITALS: BP 88/54
[2019-04-07 23:42] VITALS: TEMP 100.7
[2019-04-08] MEDS: MORPHINE 2 MG/ML SYR IV PRN (00:04)
== END 2019-04-08 02:40 | disposition expired | DRG 951 ==
LOC: 2ND 16:37
PROVIDERS: ADMIT Family Medicine; ATTEND Family Medicine
DX: Z51.5 Encounter for palliative care (principal); J96.90 Respiratory failure, unspecified, unspecified whether with hypoxia or hypercapnia
CPT/HCPCS: J2270